=== PATIENT | male | born 1965 | race Caucasian/White ===

== ENCOUNTER → 2017-07-25 | Outpatient (CLI) | payer BC ==
--- NOTE | 2017-07-25 10:45 | DIAGNOSTIC IMAGING REPORT ---
R KNEE 4 OR MORE CLINICAL HISTORY: RIGHT KNEE PAIN pain COMPARISON: None. DISCUSSION: Minimal degenerative osteophytic change from the intercondylar notch as well as tibial spines. Joint spaces are well-preserved. Minimal osteophytic reaction superior patella. No significant joint effusion. There is no evidence for soft tissue swelling. IMPRESSION: Minimal degenerative change. No acute process. The above report was generated using voice recognition software. It may contain grammatical, syntax or spelling errors. Electronically signed by: Jules Lopez M.D. 07/25/2017 10:44 AM Dictated Date/Time: 07/25/2017 10:41 AM
== END | disposition home or self-care (01) ==
LOC: C.RDSM 19:17
PROVIDERS: ATTEND Internal Medicine
DX: M17.11 Unilateral primary osteoarthritis, right knee (principal)

== ENCOUNTER → 2017-07-28 | Outpatient (CLI) | payer BC ==
--- NOTE | 2017-07-28 17:47 | DIAGNOSTIC IMAGING REPORT ---
R LOWER EXT JOINT WITHOUT CLINICAL HISTORY: 51 years-old Male with RT KNEE PAIN. Acute right knee pain and swelling, most pronounced medially. Decreased range of motion. COMPARISON: Right knee radiographs 07/25/2017 TECHNIQUE: Multiplanar, multisequence MRI of the right knee was performed without intravenous contrast. FINDINGS: MENISCI: Radial tear involves the posterior horn medial meniscus nicely seen on image 20 series 6 and image 16 of series 8. No definite displaced fragment or parameniscal cyst. There is minimal extrusion medially of the medial meniscal body into the adjacent meniscal gutter with mild adjacent edema. Signal of the medial meniscal body without extension into an adjacent articular surface is likely degenerative. The lateral meniscus is sharp in contour and appears intact. CRUCIATE LIGAMENTS: The anterior and posterior cruciate ligaments are normal in signal, morphology and course. COLLATERAL LIGAMENTS: The popliteus tendon, biceps femoris tendon, fibular collateral ligament and iliotibial band are intact. The superficial and deep components of the medial collateral ligament are intact. EXTENSOR MECHANISM: The quadriceps and patellar tendons are intact. The medial and lateral patellar retinacula are intact. Trace fluid within the deep prepatellar bursa. KNEE JOINT: Small knee joint effusion. Areas of low and intermediate grade chondromalacia involve the patellar apex and medial patellar facet with minimal subcortical cystic change/edema of the patellar apex. High-grade chondral fissuring with associated subcortical cystic changes involve the medial trochlear groove. Low-grade chondromalacia is seen within the medial and lateral compartments. No intra-articular loose body identified. BONE MARROW: The bone marrow signal is age appropriate. No fracture, or marrow replacing process. SOFT TISSUES: Small Hernandez's cyst measures 2.0 x 0.4 x 2.6 cm. Mild associated edema suggests leaking Hernandez's cyst. Mild nonspecific subcutaneous edema about the knee, greatest medially may be reactive. IMPRESSION: 1. Radial tear of the posterior horn medial meniscus without displaced fragment or parameniscal cyst. 2. Small knee joint effusion with mild tricompartmental osteoarthritis as above. 3. No acute fracture or acute ligamentous injury identified. 4. Small Hernandez's cyst. The above report was generated using voice recognition software. It may contain grammatical, syntax or spelling errors. Electronically signed by: Edgar Ojeda M.D. 07/28/2017 5:45 PM Dictated Date/Time: 07/28/2017 5:19 PM
== END | disposition home or self-care (01) ==
LOC: C.MRIBC 16:16
PROVIDERS: ATTEND Internal Medicine
DX: M25.561 Pain in right knee (principal); S83.241A Other tear of medial meniscus, current injury, right knee, initial encounter; X58.XXXA Exposure to other specified factors, initial encounter; M25.461 Effusion, right knee; M71.21 Synovial cyst of popliteal space [Baker], right knee